=== PATIENT | female | born 1970 | race Caucasian/White ===

== ENCOUNTER 2019-10-03 09:00 | Day surgery (SDC) | payer OTHER, SELFPAY ==
[2019-10-03 09:05] VITALS: BP 119/83; PULSE 73; RESP 16; TEMP 36.3; O2SAT 99
--- NOTE | 2019-10-03 12:44 | NUR.NOTE ---
Pt left at 12:22 without having procedure performed. Pt was tired of waiting.Nursing Note:
== END 2019-10-03 09:20 ==
PROVIDERS: PCP Physician Assistant; Visit Provider Surgery
DX: R69 Illness, unspecified (principal)

== ENCOUNTER 2019-10-24 06:14 | Day surgery (SDC) | payer OTHER, SELFPAY ==
[2019-10-24 06:09] VITALS: BP 113/74; PULSE 60; RESP 16; TEMP 36.5; O2SAT 99
[2019-10-24] MEDS: Bupivacaine LIPOSOME/PF 133 MG/10 ML VIAL IJ (08:10)
--- NOTE | 2019-10-24 08:11 | SOFT_PTH ---
PATIENT: Ibis Lamas LOC: [facility] U#:[id number] AGE/SX: 49/F ROOM: RE10/24/[address]: Latha Foster : 1970 BED: DIS: 10/24/2019 SPEC #: [id number] RECD: 10/24/19 09:32 STATUS: REAGAN REQ #: [id number] STEPAN: 10/24/19 08:[address]: Latha Foster DEPT: Surgical Specimen RECD BY: Gayla Mcmillan ENTERED: 10/24/19 09:36 SP TYPE: SOFT OTHR DR: Liliana Roberts Tissues: 1 - SOFT TISSUE MISC (INC. LIPOMA) Procedures: GROSS AND MICRO LEVEL 3 Comments: [id number]
[2019-10-24] MEDS: Bacitracin 30 GM TUBE (08:13)
--- NOTE | 2019-10-24 08:20 | W.PM.OP ---
Date of service: 10/24/19 Time of Service: 08:20 Operative Note Operative Note DATE OF PROCEDURE: 09/23/19 PRE-OP DIAGNOSIS: lipoma POST-OP DIAGNOSIS: same excisio of lipoma PROCEDURE: excision of lipoma SURGEON: Latha Foster ANESTHESIA: local ESTIMATED BLOOD LOSS: 3 PATHOLOGY: other COMPLICATIONS: None Patient was transported to: same day Patient's condition: stable Procedure Description: Patient is here today for lipoma removal of the right shoulder. Information is obtained explaining risks and benefits including but not limited to: Bleeding, infection, complications from anesthesia, poor cosmesis, reaction to medications and recurrence. Patient was marked in the same day surgery. She is brought to the operative suite and placed in left lateral decubitus position. A timeout is completed. The area is prepped and draped in the usual sterile fashion using a ChloraPrep scrub solution. She did not receive preop antibiotics. It is anesthetized with 30 cc of cortisone Marcaine with epi. A 1 inch vertical incision was made over the midline of the mass. A combination of sharp dissection and electrocautery was used to remove the mass. There is approximately 3 x 2 inches. Electrocautery is used to provide hemostasis. Is attached down to the muscle of the fascia that is not invade the fascia. Deep tissues approximated with 4-0 Monocryl interrupted fashion. Skin is closed with interrupted sutures of 3-0 nylon. Is injected with 10 cc of Exparel. Bacitracin and sterile compression dressings are applied. Patient tolerated procedure well without complication. And will follow-up in 10 days for suture removal. It did not require a drain. It is sent for pathology.
--- NOTE | 2019-10-24 08:23 | PDOC.DSDIS_ITS ---
Discharge Plan Disposition Patient Disposition: HOME Condition: Good Discharge Details Reason For Visit: lipoma removal Attending Provider: Lahta Foster Primary Care Provider: Liliana Roberts Home Meds and New Rx's Prescriptions: New ibuprofen 600 mg tablet 600 mg PO Q6H PRN (Reason: pain (scale score 4-6)) Qty: 60 RF: 3 tramadol 50 mg tablet 50 mg PO Q6H PRN (Reason: pain (scale score 7-10)) Qty: 7 RF: 0 Continued cannabidiol 100 mg/mL solution 40 mg PO ONCE PRNRF: 0 lysine [L-Lysine] 500 mg tablet 500 mg PO DAILY RF: 0 Discharge Instructions Additional Instructions: Caring for Your Incision You?ll need to help care for your incision after surgery and certain medical procedures. To close an incision, your healthcare provider used stitches (sutures), special strips of surgical tape called Steri-Strips, surgical zulma, or surgical skin glue. Follow the tips on this sheet to help stop bleeding, speed healing, and prevent infection of your incision. Pain Control Use ice! Ice keeps the swelling down and swelling is what causes pain. Never apply ice directly to the skin. Wrap it in a towel or cloth. Apply ice 20 minutes on and 20 minutes off for pain control. Use as needed. Take tylenol 325 mg by mouth with food every 4 hours as needed for pain. Or ibuprofen 600 mg by mouth with food every 6 hours as needed for pain. Do not take tylenol if you have a history of heavy drinking , hepatits C or liver problems. Do not take ibuprofen if you have a history of stomach ulcers/problems, bleeding problem or kidney issues. Types of incision closures ? Surgical stitches (sutures) are placed by sewing the edges of an incision together with surgical thread. Sutures are either absorbable or non-absorbable. Absorbable sutures break down in the body over time. Non-absorbable sutures need to be removed. ? Home care ? Always wash your hands before touching your incision. ? Keep the incision clean, dry, and out of water, keep the incision out of water. ? Do not to pick at the scabs. Scabs help protect the wound. ? You can take a shower in 24 hours and wash the incision with soap and water. Pat dry/don?t scrub. It?s OK to wash around the incision. But don?t spray water directly on it. ? Pat stitches dry if they get wet. Don't rub. ? Check the incision site daily for pain, redness, drainage, swelling, or separation of the incision edges. ? If there is a bandage (dressing) over the incision, change this every 24 hours as instructed by your provider. Using clean hands change the dressing as directed by your healthcare provider. Always wash your hands before changing your dressing. ? Make sure any clothing that touches the incision is loose-fitting. This will prevent rubbing. If the incision is on the head, keep your child from wearing caps or other head coverings. These may rub against the incision. ? Try to avoid from rough play, contact sports, or physical activities for two weeks. This can put you at risk of opening the incision. ? Make sure you avoid doing things that could cause dirt or sweat to get in or on the incision. As your incision heals, the skin may appear pink or red. It may also feel slightly bumpy or raised. This is called a healing ridge. Over time, the color should fade and the raised skin will become less noticeable. Care for specific closures : ? Sutures or zulma. Once you no longer need to keep these dry, clean the incision or wound daily, generally after the first 24 hours. First remove the bandage using clean hands. Then wash the area gently with soap and warm water. Use a wet cotton swab to loosen and remove any blood or crust that forms. After cleaning, put a thin layer of antibiotic ointment on. Then put on a new bandage. Follow-up care [place] or sutures generally need to be removed in 7-10 days. Be sure to return for suture or staple removal as directed. If dissolving stitches were used in your mouth, these will not need to be removed. They should fall out or dissolve on their own. If tape closures were used, remove them yourself when your healthcare provider tells you to if they have not fallen off on their own. When to seek medical care Call your healthcare provider right away if you have any of these: ? More pain, redness, swelling, bleeding, or foul-smelling discharge around the incision area ? Fever of 101?F (38.3?C) or higher, or as directed by your child's healthcare provider ? Shaking chills ? Vomiting or nausea that doesn?t go away ? Numbness, coldness, or tingling around the incision area, or changes in skin color ? Opening of the sutures or wound Stitches or zulma come apart or fall out or surgical tape falls off before 7 days, or as directed by your healthcare provider [facility] Thursday to make appt w/ Dr. Foster in 10 days. [phone] Activity:: No lifting over 20 pounds with right arm x1. No strenuous activity x72 hours. Remove Dressings/Wound Care:: 24 hours Shower/Bathe:: 24 hours Diet:: As Tolerated Discharge Orders Discharge Orders: Discharge Order (Routine); Ordered 10/24/19 Ordered By: Latha Foster DS: Diagnosis Discharge Diagnosis (1) Lipoma of extremity: Status: Acute
== END 2019-10-24 08:44 | disposition home or self-care (01) ==
PROVIDERS: PCP Physician Assistant; Visit Provider Surgery
PROC: (CPT 23071; principal; 2019-10-24 07:30)
DX: D17.79 Benign lipomatous neoplasm of other sites (principal)
CPT/HCPCS: 23071; 88304

== ENCOUNTER 2020-01-29 11:50 | Emergency (ER) | payer OTHER, SELFPAY ==
[2020-01-29 11:56] VITALS: BP 128/83; PULSE 63; RESP 18; TEMP 36.6; O2SAT 100
--- NOTE | 2020-01-29 12:04 | W.ED.GENAD ---
Discharge Plan Disposition Patient Disposition: HOME Condition: Stable Discharge Details Clinical Impression: Hand pain, left Primary Care Provider: Liliana Roberts ED Provider: Shana Berumen Home Meds and New Rx's Prescriptions: Continued lysine [L-Lysine] 500 mg tablet 500 mg PO DAILY RF: 0 cannabidiol 100 mg/mL solution 40 mg PO .COMPLEX RF: 0 ibuprofen 600 mg tablet 600 mg PO Q6H PRN (Reason: pain (scale score 4-6)) Qty: 60 RF: 3 Discharge Instructions Instructions: Arthralgia (ED) Additional Instructions: Follow up with primary care provider in 3-5 days. Return to ED sooner if any worsening or concerns. Increase oral fluids. Please take Tylenol or Ibuprofen with food every 4-6 hours as needed for pain and swelling. Alternate ice and heat. Wear splint for comfort. Rest, ice, compression, elevation. Your x-rays are negative for any fracture at this time. You could be having pain from repetitive movements or tendinitis. Referrals: Liliana Roberts [Primary Care Provider] - Medical Decision Making 49-year-old female presents to the ED with chief complaint of sudden onset of left hand pain which began yesterday afternoon. She has no known recent injuries. She reports some tenderness to the snuffbox. She has been intact pulses, she notes that her fingers are somewhat swollen. Is able to make a fist. Moves her wrist without any difficulty. She states that her fingers will go numb at night. She has a past medical history of endometriosis, cellulitis, excision of ganglion cyst to the left hand, surgical history includes appendectomy, tonsillectomy and foot surgery. She has not taken any medications today prior to arrival. Imaging protocol: XR Left hand. Views: 3 or more views. COMPARISON: No relevant prior studies available. FINDINGS: Bones/joints: Normal. Soft tissues: Normal. IMPRESSION: No acute findings. No acute fractures or dislocations Thank you for allowing us to participate in the care of your patient. Dictated and Authenticated by: Josiah Bermudez MD We will place a universal wrist splint and instruct patient to follow up with PCP. HPI General Mode of arrival: ambulatory. Date/Time Provider Initiated Documentation: 01/29/20 11:50. Limitations to Documentation: no limitations. Information obtained by: patient. HPI Narrative: 49-year-old female presents to the ED with chief complaint of sudden onset of left hand pain which began yesterday afternoon. She has no known recent injuries. She reports some tenderness to the snuffbox. She has been intact pulses, she notes that her fingers are somewhat swollen. Is able to make a fist. Moves her wrist without any difficulty. She states that her fingers will go numb at night. She has a past medical history of endometriosis, cellulitis, excision of ganglion cyst to the left hand, surgical history includes appendectomy, tonsillectomy and foot surgery. She has not taken any medications today prior to arrival. Related Data Home Medications Medication Instructions Recorded Confirmed lysine 500 mg tablet 500 mg PO DAILY 09/02/19 01/29/20 ibuprofen 600 mg PO Q6H PRN #60 tab 10/24/19 01/29/20 cannabidiol 100 mg/mL oral solution 40 mg PO .COMPLEX ml 01/27/20 01/29/20 Previous Rx's Medication Instructions Recorded ibuprofen 600 mg PO Q6H PRN #60 tab 10/24/19 Allergies Allergy/AdvReac Type Severity Reaction Status Date / Time Sulfa (Sulfonamide Allergy Intermediate Hives Unverified 01/27/20 09:09 Antibiotics) General Stated Complaint: Orthopedic ASHLEY: 4 Review of Systems All systems reviewed & are unremarkable except as noted in HPI and below Musculoskeletal Musculoskeletal: Reports arthralgias (hand pain) 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 Social History Smoking/Tobacco Use Status: Former Tobacco Use Quit Date: 02/23/99 Smoking risk assessment performed?: Yes Alcohol Intake: current Alcohol Intake frequency: a few times a week Details: a couple of drinks 3 times a week Drug use: Never Substance use type: does not use 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 Do you feel safe at home: Yes Do you feel safe in your relationship?: Yes Exam Extrem General: full ROM and capillary refill normal Left upper extremity: full ROM, normal capillary refill, no joint enlargement and hand (Negative phalens test) Details: normal to inspection, neurosensory exam normal, tendon exam abnormal and normal ROM of fingers; no lacerations, no ecchymosis, no crepitus and no foreign bodies Course Vital Signs Vital signs: Vital Signs Temperature 36.6 C 01/29/20 11:56 Pulse 63 01/29/20 11:56 Respiratory Rate 18 01/29/20 11:56 Blood Pressure 128/83 01/29/20 11:56 Pulse Oximetry 100 01/29/20 11:56 Temperature 36.6 C 01/29/20 11:56 Temperature Source Skin 01/29/20 11:56 Pulse 63 01/29/20 11:56 Respiratory Rate 18 01/29/20 11:56 Respiratory Effort Non-Labored 01/29/20 12:00 Blood Pressure 128/83 01/29/20 11:56 Blood Pressure Position Sitting 01/29/20 11:56 Pulse Oximetry 100 01/29/20 11:56 Oxygen Delivery Method Room Air 01/29/20 11:56 Oxygen Flow Rate 0 01/29/20 11:56
--- NOTE | 2020-01-29 12:26 | DI.RAD_ITS ---
EXAM: XR HAND LT COMPLETE CLINICAL HISTORY: Left hand pain. TECHNIQUE: 2D digital imaging was performed. COMPARISON: No exams were available for comparison FINDINGS: Three views of the left hand reveal no fracture or dislocation. No radiopaque foreign body. No osse ous lesions. IMPRESSION: No fracture evident. DATA REPOSITORY: RADIATION DOSE DELIVERED:
--- NOTE | 2020-01-29 12:30 | DI.VRAD_ITS ---
PROCEDURE INFORMATION: Exam: XR Left Hand Exam date and time: 01/29/2020 12:24 PM Age: 49 years old Clinical indication: Hand; Patient HX: No trauma - pain base of left thumb TECHNIQUE: Imaging protocol: XR Left hand. Views: 3 or more views. COMPARISON: No relevant prior studies available. FINDINGS: Bones/joints: Normal. Soft tissues: Normal. IMPRESSION: No acute findings. No acute fractures or dislocations Dictated and Authenticated by: Josiah Bermudez MD. Ordering:ANA Saldana MD
== END 2020-01-29 12:50 | disposition home or self-care (01) ==
PROVIDERS: Emergency Provider Registered Nurse Emergency; PCP Physician Assistant
DX: M79.642 Pain in left hand (principal); R60.0 Localized edema; R20.0 Anesthesia of skin
CPT/HCPCS: 29125; 99283; 73130

== ENCOUNTER 2020-03-16 03:21 | Outpatient (CLI) | payer OTHER, SELFPAY ==
--- NOTE | 2020-03-16 06:30 | DI.MAMMO_ITS ---
EXAM: MG MAMMO SCREENING CLINICAL HISTORY: screening,Z12.39 TECHNIQUE: Bilateral full field digital CC and MLO mammographic images were obtained with 3D tomosyn thesis and utilizing computer aided detection (CAD). COMPARISON: Available for comparison. FINDINGS: Masses/Architectural Distortion: There has been interval increase in size of a nodule in the upper ou ter quadrant of the left breast. There is a question of a partially obscured nodule in the outer rosey tral right breast on the craniocaudad view. Microcalcifications: No suspicious pleomorphic-type are seen. Skin Thickening/Nipple Retraction: None. IMPRESSION: 1. Right and breast nodules as described above. 2. Additional views of both breasts are requested as well as ultrasound as indicated. BI-RADS Category 0 - Assessment Incomplete: Need additional imaging evaluation Breast Density - Category B - Scattered areas of fibroglandular density Breast density category C or D implies that the patient has dense breast tissue. Dense breast tissue is very common and is not abnormal but dense breast tissue can make it harder to find cancer on a ma mmogram. Also, dense breast tissue may increase their breast cancer risk. This information about the result of the mammogram report was provided to the patient to raise their awareness. Use this report when you speak with the patient about their risks for breast cancer, which includes their family hist ory. At that time, you may recommend for more screening tests (Ultrasound or MRI) as they might be us eful based on their risk. A negative radiographic report should not delay biopsy if a dominant or clinically suspicious mass is present. Up to ten percent of cancers are not identified on mammography. A negative report may reinforce clinical impression. Adenosis and dense breasts may obscure an underlying neoplasm. False positive reports average 6 to 10%. Patient will receive a letter notifying them of these results.
== END 2020-03-16 03:41 ==
PROVIDERS: PCP Physician Assistant; Visit Provider Obstetrics & Gynecology
DX: Z12.31 Encounter for screening mammogram for malignant neoplasm of breast (principal); N63.21 Unspecified lump in the left breast, upper outer quadrant
CPT/HCPCS: 77063; 77067

== ENCOUNTER 2020-03-23 02:54 | Outpatient (CLI) | payer OTHER, SELFPAY ==
--- NOTE | 2020-03-23 07:15 | DI.MAMMO_ITS ---
EXAM: MG MAMMO SCREEN CALL BACK BI CLINICAL HISTORY: F/U MAMMO, INCREASE IN LT BREAST NODULE,? PARTIALLY OBSCURED NODULE RT FELIPE. TECHNIQUE: Bilateral spot-compression views COMPARISON: Prior mammograms were reviewed, most recent 03/16/2020 FINDINGS: Left breast spot compression view reveals persistence of the recently described nodule. Please note breast ultrasound performed today reveals this to be a septated cyst. Please see that separate ultra sound report Right breast additional spot 3D view performed today renders the previously described possible nodule less evident. Indeed, today's right breast ultrasound was negative. Please see that separate ultra sound report. IMPRESSION: Left breast nodule persists on additional mammographic views and is shown to be septated cyst on ultr asound today. Right breast nodule is less evident on these additional mammographic view and indeed is negative on u ltrasound today. Please review separate bilateral breast ultrasound reports performed today. BI-RADS Category 3 - 6 month - Probably Benign Finding: Recommend follow-up ultrasound in 6 months Breast Density - Category C - Heterogeneously dense Breast density Category C or D implies that the patient has dense breast tissue. Dense breast tissue can make it harder to find cancer on a mammogram. Dense breast tissue is also associated with an incr eased risk of breast cancer. This information about the result of the mammogram report was provided to the patient to raise their awareness. Use this report when you speak with the patient about their risks for breast cancer, which includes their family history. At that time, you may recommend additional screening tests (Ultrasoun d or MRI) as these tests may add significant information. A negative radiographic report should not delay biopsy if a dominant or clinically suspicious mass is present. Up to ten percent of cancers are not identified on mammography. A negative report may reinforce clinical impression. Adenosis and dense breasts may obscure an underlying neoplasm. False positive reports average 6 to 10%. Patient will receive a letter notifying them of these results.
--- NOTE | 2020-03-23 07:25 | DI.US_ITS ---
EXAM: US BREAST LT LIMITED CLINICAL HISTORY: F/U MAMMO, INCREASE IN SIZE OF LT BREAST NODULE. TECHNIQUE: Limited ultrasound of the left breast was performed. COMPARISON: Prior mammograms were reviewed. . Most recent being 03/16/2020 as well as today's diagn ostic images FINDINGS: At the peripheral 1 o'clock position there is a 12 x 4 millimeter cyst which corresponds to the findi ng at this location on the mammogram. Also noted is a 5 x 3 millimeter microcyst at the 6 o'clock position. No solid lesions seen in the left breast. IMPRESSION: Benign-appearing left breast ultrasound findings as described above. Appropriate follow-up is repeat imaging in 6 months to ensure stability. BI-RADS Category 3 - 6 month - Probably Benign Finding: Recommend follow-up mammography in 6 months Breast Density - Category C - Heterogeneously dense Breast density Category C or D implies that the patient has dense breast tissue. Dense breast tissue can make it harder to find cancer on a mammogram. Dense breast tissue is also associated with an incr eased risk of breast cancer. This information about the result of the mammogram report was provided to the patient to raise their awareness. Use this report when you speak with the patient about their risks for breast cancer, which includes their family history. At that time, you may recommend additional screening tests (Ultrasoun d or MRI) as these tests may add significant information. A negative radiographic report should not delay biopsy if a dominant or clinically suspicious mass is present. Up to ten percent of cancers are not identified on mammography. A negative report may reinforce clinical impression. Adenosis and dense breasts may obscure an underlying neoplasm. False positive reports average 6 to 10%. Patient will receive a letter notifying them of these results.
--- NOTE | 2020-03-23 07:25 | DI.US_ITS ---
EXAM: US BREAST RT LIMITED CLINICAL HISTORY: F/U MAMMO, ? PARTIALLY OBSCURED NOULE OUTER CENTRAL RT BREAST. TECHNIQUE: Limited ultrasound of the right breast was performed. COMPARISON: Prior mammograms were reviewed. Most recent mammogram 03/16/2020 as well as additional m ammographic spot views performed today. FINDINGS: There is no evidence of solid or significant cystic lesions in all 4 quadrants of the right breast. This implies that the asymmetric density described recently on the screening mammogram is most probab ly asymmetric tissue as opposed to a true nodule. Indeed, it was also less concerning on the additional mammographic view performed today. Also no significant findings in the retroareolar region. No adenopathy in the ipsilateral-right axil la. IMPRESSION: Negative right breast ultrasound. Appropriate follow-up is repeat right breast mammogram in 6 months. BI-RADS Category 3 - 6 month - Probably Benign Finding: Recommend follow-up mammography in 6 months Breast Density - Category C - Heterogeneously dense Breast density Category C or D implies that the patient has dense breast tissue. Dense breast tissue can make it harder to find cancer on a mammogram. Dense breast tissue is also associated with an incr eased risk of breast cancer. This information about the result of the mammogram report was provided to the patient to raise their awareness. Use this report when you speak with the patient about their risks for breast cancer, which includes their family history. At that time, you may recommend additional screening tests (Ultrasoun d or MRI) as these tests may add significant information. A negative radiographic report should not delay biopsy if a dominant or clinically suspicious mass is present. Up to ten percent of cancers are not identified on mammography. A negative report may reinforce clinical impression. Adenosis and dense breasts may obscure an underlying neoplasm. False positive reports average 6 to 10%. Patient will receive a letter notifying them of these results.
== END 2020-03-23 03:14 ==
PROVIDERS: PCP Physician Assistant; Visit Provider Obstetrics & Gynecology
DX: N60.02 Solitary cyst of left breast (principal); R92.8 Other abnormal and inconclusive findings on diagnostic imaging of breast; R92.2 Inconclusive mammogram; Z12.31 Encounter for screening mammogram for malignant neoplasm of breast
CPT/HCPCS: 76642; 77063; 77067

== ENCOUNTER 2020-04-09 14:18 | Emergency (ER) | payer OTHER, SELFPAY ==
[2020-04-09 14:24] VITALS: BP 117/73; PULSE 70; RESP 16; TEMP 36.2; O2SAT 100
--- NOTE | 2020-04-09 14:30 | DI.RAD_ITS ---
EXAM: XR FOREARM RT CLINICAL HISTORY: pain and swelling prox third post fall. TECHNIQUE: 2D digital imaging was performed. COMPARISON: No exams were available for comparison FINDINGS: Limited two view study reveals no obvious fractures. No radiopaque foreign body. No osseous lesions in the form bones. If there is a significant consideration for possible elbow fracture then dedicated elbow views would be recommended. IMPRESSION: DATA REPOSITORY: RADIATION DOSE DELIVERED:
--- NOTE | 2020-04-09 14:40 | W.ED.GENAD ---
Discharge Plan Disposition Patient Disposition: HOME Condition: Good Discharge Details Clinical Impression: Contusion Primary Care Provider: Liliana Roberts ED Provider: Lauren Serrano Home Meds and New Rx's Prescriptions: No Action cannabidiol 100 mg/mL solution 40 mg PO .COMPLEX RF: 0 ibuprofen 600 mg tablet 600 mg PO Q6H PRN (Reason: pain (scale score 4-6)) Qty: 60 RF: 3 Discharge Instructions Instructions: Contusion in Adults (ED) Additional Instructions: Compression, ice, elevation Return for worsening pain, strength or sensation changes, or with any new or worsening complaints Ibuprofen and Tylenol as needed for discomfort Medical Decision Making Compression Eros wrap Patient without acute fracture on x-ray, interpreted by me, pending radiology review Ibuprofen and Tylenol as needed for pain Repeat x-ray in 1 week with persistent pain Return precautions discussed and pt expressed understanding Differential Diagnosis Differential Diagnosis: Fracture, strain, hematoma, contusion Medical Records Medical records reviewed: Yes I reviewed the patient's medical records. HPI 49-year-old female presents with slip and fall. She landed on her right forearm. This just prior to arrival she is she denies any history of head injury or neck pain. She denies any chest pain, shortness of breath, history of coagulopathy. She denies any strength or sensation changes. She describes the pain as aching. Denies chance of . General Date/Time Provider Initiated Documentation: 04/09/20 14:25. Related Data Home Medications Medication Instructions Recorded Confirmed ibuprofen 600 mg PO Q6H PRN #60 tab 10/24/19 04/09/20 cannabidiol 100 mg/mL oral solution 40 mg PO .COMPLEX ml 01/27/20 04/09/20 Previous Rx's Medication Instructions Recorded ibuprofen 600 mg PO Q6H PRN #60 tab 10/24/19 Allergies Allergy/AdvReac Type Severity Reaction Status Date / Time Sulfa (Sulfonamide Allergy Intermediate Hives Unverified 04/09/20 14:33 Antibiotics) General Stated Complaint: Orthopedic ASHLEY: 3 Review of Systems Narrative: Review of systems negative x5 aside from where indicated in HPI, specifically no history of coagulopathy, head injury, nausea, vomiting, neck pain [facility] Medical History (Updated 04/09/20 @ 15:02 by DAREK Hanson) Abnormal mammogram of both breasts Breast cancer screening Endometriosis History of cellulitis right face from ear infection Surgical History (Updated 02/07/20 @ 14:59 by Maye Zeng RN) H/O excision of ganglion cyst left wrist Hx of appendectomy Hx of laparoscopy for endometriosis Hx of tonsillectomy S/P foot surgery, left S/P foot surgery, 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 Status post excision of lipoma (~10/24/19) right shoulder in OR Social History Smoking/Tobacco Use Status: Former Tobacco Use tobacco type: cigarettes Quit Date: 02/23/99 Smoking risk assessment performed?: Yes Alcohol Intake: current Alcohol Intake frequency: a few times a week Details: a couple of drinks 3 times a week Drug use: Never Substance use type: does not use 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 Swelling and tenderness, no tenderness to right wrist or right elbow, no tenderness to right shoulder, neurovascularly intact, sensation intact Course Vital Signs Vital signs: Vital Signs Temperature 36.2 C L 04/09/20 14:24 Pulse 70 04/09/20 14:24 Respiratory Rate 16 04/09/20 14:24 Blood Pressure 117/73 04/09/20 14:24 Pulse Oximetry 100 04/09/20 14:24 Temperature 36.2 C L 04/09/20 14:24 Temperature Source Skin 04/09/20 14:24 Pulse 70 04/09/20 14:24 Respiratory Rate 16 04/09/20 14:24 Respiratory Effort 04/09/20 14:34 Blood Pressure 117/73 04/09/20 14:24 Blood Pressure Position Sitting 04/09/20 14:24 Pulse Oximetry 100 04/09/20 14:24 Oxygen Delivery Method Room Air 04/09/20 14:24 Oxygen Flow Rate 0 04/09/20 14:24 Pain Level 6 04/09/20 14:24 Comment 04/09/20 14:24
== END 2020-04-09 15:19 | disposition home or self-care (01) ==
PROVIDERS: Emergency Provider Physician Assistant; PCP Physician Assistant
DX: S50.11XA Contusion of right forearm, initial encounter (principal); W00.1XXA Fall from stairs and steps due to ice and snow, initial encounter
CPT/HCPCS: 99283; 73090

== ENCOUNTER 2020-07-17 15:38 | Emergency (ER) | payer OTHER, SELFPAY ==
[2020-07-17 15:45] VITALS: BP 113/78; PULSE 54; RESP 14; TEMP 36.2; O2SAT 100
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
== END 2020-07-17 17:46 | disposition home or self-care (01) ==
PROVIDERS: Emergency Provider Physician Assistant; PCP Physician Assistant
DX: S40.212A Abrasion of left shoulder, initial encounter (principal); V19.9XXA Pedal cyclist (driver) (passenger) injured in unspecified traffic accident, initial encounter
CPT/HCPCS: 90471; 99284; 73030; 73060; 99283

== ENCOUNTER 2020-09-21 03:40 | Outpatient (CLI) | payer OTHER, SELFPAY ==
--- NOTE | 2020-09-21 07:15 | DI.US_ITS ---
Exam(s) US BREAST LT COMPLETE MG MAMMO DIAGNOSTIC UNI EXAM: MG MAMMO DIAGNOSTIC UNI right and U/S breast LT complete CLINICAL HISTORY: F/U ABNL MAMMO, 6 MO F/U,. TECHNIQUE: Craniocaudal and mediolateral oblique Full Field Digital Mammography views of the right b reast with Computer Aided Diagnosis followed by Tomosynthesis and left breast ultrasound. COMPARISON: Priors available for comparison. FINDINGS: Right mammography/Tomosynthesis: Masses/Architectural Distortion: None seen. Microcalcifictions: No suspicious pleomorphic-type are seen. Skin Thickening/Nipple Retraction: None. Left breast US: Echotexture: Normal appearance of the glandular tissue. Shadowing: No suspicious foci. Cyst: The septated cyst at the 1 o'clock position of the left breast is unchanged. There has been in terval decrease in size in the simple cyst at the 6 o'clock position of the left breast 6 cm from the nipple. It currently measures 3 mm in diameter. Solid lesions: None seen. Ductal dilation: None. IMPRESSION: 1. No evidence of malignancy is noted. 2. Unless there is more urgent need, follow-up screening mammography is recommended, as per [employer] [employer] guidelines. 3. The findings were discussed with the patient on the date of the examination. BI-RADS Category 2 - Benign Findings Breast Density - Category C - Heterogeneously dense Breast density Category C or D implies that the patient has dense breast tissue. Dense breast tissue can make it harder to find cancer on a mammogram. Dense breast tissue is also associated with an incr eased risk of breast cancer. This information about the result of the mammogram report was provided to the patient to raise their awareness. Use this report when you speak with the patient about their risks for breast cancer, which includes their family history. At that time, you may recommend additional screening tests (Ultrasoun d or MRI) as these tests may add significant information. A negative radiographic report should not delay biopsy if a dominant or clinically suspicious mass is present. Up to ten percent of cancers are not identified on mammography. A negative report may reinforce clinical impression. Adenosis and dense breasts may obscure an underlying neoplasm. False positive reports average 6 to 10%. Patient will receive a letter notifying them of these results.
== END 2020-09-21 04:00 ==
PROVIDERS: PCP Physician Assistant; Visit Provider Obstetrics & Gynecology
DX: R92.8 Other abnormal and inconclusive findings on diagnostic imaging of breast (principal); R92.2 Inconclusive mammogram
CPT/HCPCS: 76642; 77061; 77065; G0279

== ENCOUNTER → 2021-11-15 00:19 | Outpatient (CLI) | payer OTHER, SELFPAY ==
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
== END ==
PROVIDERS: PCP Physician Assistant; Visit Provider Student in an Organized Health Care Education/Training Program
DX: M65.812 Other synovitis and tenosynovitis, left shoulder (principal)
CPT/HCPCS: 73221

== ENCOUNTER → 2022-01-03 12:17 | Outpatient (CLI) | payer OTHER, SELFPAY ==
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
== END ==
PROVIDERS: PCP Physician Assistant; Visit Provider Podiatrist
DX: M19.071 Primary osteoarthritis, right ankle and foot (principal)
CPT/HCPCS: 73630

== ENCOUNTER 2022-04-18 02:04 | Outpatient (CLI) | payer OTHER, SELFPAY ==
[2022-04-18 13:46] LABS: ALT 23 U/L (14-59); AST 16 U/L (15-37); Albumin 4.1 g/dL (3.4-5.0); Alkaline Phosphatase 102 U/L (46-116); Anion Gap 8.2 mmol/L (3-11); BUN 16 mg/dL (7-18); CO2 28.8 mmol/L (21.0-32.0); Calcium 9.3 mg/dL (8.5-10.1); Chloride 104 mmol/L (98-107); Cholesterol 173 mg/dL (<200); Estimated GFR 69.06 (mL/min/1.73m2); Glucose 95 mg/dL (74-106); HDL Cholesterol 75 mg/dL (40-60); Sodium 141 mmol/L (136-145); Triglyceride < 25 mg/dL (<150)
[2022-04-18 13:56] LABS: LDL CHOLESTEROL 90 mg/dL (<100)
== END 2022-04-18 02:05 | disposition home or self-care (01) ==
PROVIDERS: PCP Physician Assistant; Visit Provider Nurse Practitioner Family
DX: E66.3 Overweight (principal)
CPT/HCPCS: 36415; 80053; 80061; 83721

== ENCOUNTER 2022-09-12 10:06 | Outpatient (CLI) | payer OTHER, SELFPAY ==
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
== END 2022-09-12 10:07 | disposition home or self-care (01) ==
LOC: DIORS 10:07
PROVIDERS: PCP Physician Assistant; Referring Provider Physician Assistant; Visit Provider Physician Assistant
DX: M25.561 Pain in right knee (principal); M22.8X1 Other disorders of patella, right knee
CPT/HCPCS: 73564

== ENCOUNTER 2022-10-24 09:52 | Outpatient (REF) | payer OTHER, SELFPAY ==
--- NOTE | 2022-10-24 09:20 | PAPFT_PTH ---
PATIENT: Ibis Lamas LOC: [facility]#:[id number] AGE/SX: 52/F ROOM: RE10/24/[address]: Andreia Hartman DO : 1970 BED: DIS: 10/24/2022 SPEC #: [id number] RECD: 10/24/22 13:22 STATUS: REAGAN REAra #: [id number] STEPAN: 10/24/22 09:[address]: Andreia Hartman DEPT: [facility] Cytology RECD BY: Lauren Steward ENTERED: 10/24/22 13:22 SP TYPE: PAPFT OTHR DR: Liliana Roberts Tissues: 1 - CX/ENDOCX FOR PAP SMEARS Procedures: PAP THIN PREP/UVM Screening HPV DNA PROBE Comments: [id number]
== END 2022-10-24 09:53 | disposition home or self-care (01) ==
LOC: LBN 09:52
PROVIDERS: PCP Physician Assistant; Visit Provider Obstetrics & Gynecology
DX: Z12.4 Encounter for screening for malignant neoplasm of cervix (principal); Z11.51 Encounter for screening for human papillomavirus (HPV)
CPT/HCPCS: 88142; 87624

== ENCOUNTER → 2022-11-17 01:29 | Outpatient (CLI) | payer OTHER, SELFPAY ==
--- NOTE | 2022-11-17 07:46 | DI.MAMMO_ITS ---
Exam(s) MAMMO SCREENING EXAM: MAMMO SCREENING CLINICAL HISTORY: screening. TECHNIQUE: Bilateral full field digital CC and MLO mammographic images were obtained with 3D tomosyn thesis and utilizing computer aided detection (CAD). COMPARISON: Prior mammograms were reviewed. FINDINGS: No new findings in the right breast. In the left breast 2 adjacent benign-appearing small nodular densities in the upper outer quadrant ar e again noted, unchanged. However, inferiorly at the 6 o'clock position there is a new nodular densi ty measuring 5 x 4 mm located 9 cm in from the nipple. Spot compression view and ultrasound recommen ded. No malignant-appearing microcalcification groups. There is no significant architectural distortion nor skin thickening-retraction. IMPRESSION: 1. No radiographic evidence of malignancy in right breast. 2. New nodular density inferiorly at approximately 6 o'clock position left breast. Spot compression view and ultrasound recommended. BI-RADS Category 0 - Assessment Incomplete: Need additional imaging evaluation Breast Density - Category B - Scattered areas of fibroglandular density Breast density Category C or D implies that the patient has dense breast tissue. Dense breast tissue can make it harder to find cancer on a mammogram. Dense breast tissue is also associated with an incr eased risk of breast cancer. This information about the result of the mammogram report was provided to the patient to raise their awareness. Use this report when you speak with the patient about their risks for breast cancer, which includes their family history. At that time, you may recommend additional screening tests (Ultrasoun d or MRI) as these tests may add significant information. A negative radiographic report should not delay biopsy if a dominant or clinically suspicious mass is present. Up to ten percent of cancers are not identified on mammography. A negative report may reinforce clinical impression. Adenosis and dense breasts may obscure an underlying neoplasm. False positive reports average 6 to 10%. Patient will receive a letter notifying them of these results.
== END ==
PROVIDERS: PCP Physician Assistant; Visit Provider Obstetrics & Gynecology
DX: Z12.31 Encounter for screening mammogram for malignant neoplasm of breast (principal)
CPT/HCPCS: 77063; 77067

== ENCOUNTER → 2022-11-28 00:20 | Outpatient (CLI) | payer OTHER, SELFPAY ==
--- NOTE | 2022-11-28 | DI.US_ITS ---
Exam(s) MG MAMMO SCREEN CALL BACK UNI US BREAST LT LIMITED EXAM: MG MAMMO SCREEN CALL BACK UNI CLINICAL HISTORY: F/U ABNL MAMMO, NEW NODULAR DENSITY LT BREAST. TECHNIQUE: Craniocaudal and mediolateral oblique spot compression digital Mammography views of the r ightbreast with Tomosynthesis and right breast ultrasound. COMPARISON: MG MAMMO BILAT SCREEN W LISETH from 01/15/2015 MG MAMMO BILAT SCREEN W LISETH from 02/15/2016 MG MAMMO BILAT SCREEN W LISETH from 03/16/2017 MG MAMMO BILAT SCREENING W LISETH from 03/23/2018 MG MAMMO BILAT SCREENING W LISETH from 03/31/2019 MG MG MAMMO SCREENING from 03/16/2020 US US BREAST LT LIMITED from 03/23/2020 US US BREAST RT LIMITED from 03/23/2020 MG MG MAMMO DIAGNOSTIC UNI from 09/21/2020 US US BREAST LT COMPLETE from 09/21/2020 MG MG MAMMO SCREENING from 11/17/2022 US US BREAST LT LIMITED from 11/28/2022 FINDINGS: Mammography/Tomosynthesis: Masses/Architectural Distortion: Persistent circumscribed nodules are again noted in the posterior up per outer quadrant of the right breast. Tiny nodule in the central breast. Microcalcifictions: No suspicious pleomorphic-type are seen. Skin Thickening/Nipple Retraction: None. Right breast US: Echotexture: Normal appearance of the glandular tissue. Shadowing: No suspicious foci. Cyst: 2 adjacent cysts some measuring 5 and 6 millimeters, in the 1 o'clock position 9 cm from the ni pple. 3 millimeter cyst 6 o'clock position 6 cm from the nipple. Solid lesions: None seen. Ductal dilation: None. IMPRESSION: 1. No evidence of malignancy is noted. 2. Unless there is more urgent need, follow-up screening mammography is recommended, as per [place] [employer] guidelines. 3. The findings were discussed with the patient on the date of the examination. BI-RADS Category 2 - Benign Findings Breast Density - Category B - Scattered areas of fibroglandular density A negative radiographic report should not delay biopsy if a dominant or clinically suspicious mass is present. Up to ten percent of cancers are not identified on mammography. A negative report may reinforce clinical impression. Adenosis and dense breasts may obscure an underlying neoplasm. False positive reports average 6 to 10%. Patient will receive a letter notifying them of these results.
== END ==
PROVIDERS: PCP Physician Assistant; Visit Provider Obstetrics & Gynecology
DX: Z12.31 Encounter for screening mammogram for malignant neoplasm of breast (principal); N63.12 Unspecified lump in the right breast, upper inner quadrant
CPT/HCPCS: 76642; 77063; 77067

== ENCOUNTER 2023-08-11 18:11 | Outpatient (REF) | payer OTHER, SELFPAY ==
[2023-08-11 21:04] LABS: Bilirubin Negative (Negative); Blood Negative (Negative); Clarity Clear (Clear); Glucose Negative (Negative); Ketones 40 mg/dL (Negative); Leukocyte Esterase Negative (Negative); Nitrite Negative (Negative); Urobilinogen 0.2 mg/dL (Up to 0.2); pH 7.5 (5-8)
== END 2023-08-11 18:12 | disposition home or self-care (01) ==
LOC: LBN 18:11
PROVIDERS: PCP Nurse Practitioner Adult Health; Visit Provider Nurse Practitioner Family
DX: R39.89 Other symptoms and signs involving the genitourinary system (principal); R82.998 Other abnormal findings in urine
CPT/HCPCS: 81003

== ENCOUNTER 2024-02-17 12:37 | Emergency (ER) | payer OTHER, SELFPAY ==
[2024-02-17 12:40] VITALS: BP 136/99; PULSE 74; RESP 18; TEMP 36.6; O2SAT 100
--- NOTE | 2024-02-17 12:55 | W.ED.GENAD ---
Discharge Plan Disposition Patient Disposition: Home Condition: Stable Discharge Details Clinical Impression: Concussion syndrome Primary Care Provider: Nuria Malagon ED Provider: Jose Lloyd Home Meds and New Rx's Prescriptions: Continued Deeper Dreams CBN & CBD Gummies PO QHS PRN (Reason: insomnia) ibuprofen 600 mg tablet 600 mg PO Q6H PRN (Reason: pain (scale score 4-6)) Qty: 60 3RF Rx Instructions: take w/ food Discharge Instructions Instructions: Meclizine, Post-Concussion Syndrome ED Additional Instructions: You were seen in the emergency department for your postconcussion syndrome with some intermittent nausea and dizziness, this is common after concussion and it can take weeks to recover from this, you have no evidence of intracranial bleeding or neurologic abnormality on exam and do not meet [place] head CT criteria. You are well outside the window where brain bleed would be suspected, if you had had some brain bleeding it would have pronounced itself with severe neurologic changes. Please use therapeutic dosing of Tylenol (acetamenophen) & Advil (ibuprofen) in an alternating fashion as follows: Take 1000mg of Tylenol every 6 hours without missing doses- that is 4 times per day. Care Home in between the Tylenol dosings, take 400-600mg of Advil also on a 6 hour schedule, that is also 4 times per day. The daily maximum dosing of Tylenol is 4000mg, and the daily maximum dosing of Advil is 2400mg. This is safe to do for weeks. Please note that some common cold medications & prescription pain medications may contain acetamenophen and you need to read OTC drug labels and factor that in to maximum daily dosings. Take the provided meclizine for any dizziness as needed, this may help with your upcoming travel plans, please return to emergency department for any severe neurological changes, intractable nausea or vomiting, visual changes, loss of consciousness, new onset of severe vertigo. Referrals: Nuria Malagon, [facility] [employer] [facility] [Primary Care Provider] - Discharge Data Discharge Date/Time-TO BE ENTERED AT DEPARTURE: 02/17/24 13:28 HPI General Date/Time Provider Initiated Documentation: 02/17/24 12:55. HPI Narrative: 53 year-old female presents to ED today by POV/ambulating with a chief complaint of head injury, hip injury with onset 3 weeks ago, still having some intermittent dizziness/nausea while driving etc. 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 She denies loss of consciousness but states her memory was a little foggy afterwards. Quality described as generalized headache with nausea/dizziness intermittently, resolving hip and R neck bruise, no radiation to numbness/tingling, vertigo, visual changes, repetitive questioning. Severity is described as mild to moderate. Palliating factors include taking Tylenol and ibuprofen with some relief. Provoking factors include nothing specific. Events leading up to the incident/Associated Symptoms: Patients daughter is a nurse and wanted her to get checked if she needs to get a CT prior to upcoming holiday travel. Patient not anticoagulated. Related Data Home Medications ?Medication ?Instructions ?Recorded ?Confirmed ibuprofen 600 mg tablet 600 mg PO Q6H PRN pain (scale 10/24/19 02/17/24 score 4-6) #60 tabs Deeper Dreams CBN & CBD Gummies PO QHS PRN insomnia 05/22/23 08/11/23 Previous Rx's ?Medication ?Instructions ?Recorded ibuprofen 600 mg tablet 600 mg PO Q6H PRN pain (scale 10/24/19 score 4-6) #60 tabs Allergies Allergy/AdvReac Type Severity Reaction Status Date / Time Sulfa (Sulfonamide Allergy Intermediate Hives Unverified 02/17/24 12:45 Antibiotics) Oxycodone Allergy Unknown Other (See Uncoded 02/17/24 12:45 Comment) General Stated Complaint: Orthopedic ASHLEY: 4 Review of Systems All systems reviewed & are unremarkable except as noted in HPI and below Exam Narrative Exam Narrative: GENERAL APPEARANCE: Well-nourished, non-toxic, awake and alert, atraumatic, no acute distress. SKIN: Warm, pink, dry, intact, without rashes/lesions/ulcerations. HEAD: Normocephalic, atraumatic, normal hair distribution for gender/age. EYES: Normal conjunctiva, no exudates on lids/lashes. ENT: Nares patent, no circumoral cyanosis, no facial swelling NECK: Supple, trachea midline, painless cervical ROM. LUNGS/CHEST: Non-labored respirations, normal A/P diameter, symmetrical expansion, no chest wall deformity HEART (CV/PV): No peripheral edema, no JVD. ABDOMEN: Soft, non-distended, no guarding. MSK: Normal ROM, no swelling/deformity to bilateral UEs or LEs, moving all extremities without weakness, no cyanosis, spine midline without tenderness, normal curvature,resolving contusions to right neck, right hip not overtly tender, weightbearing as normal, no George sign, no periorbital ecchymosis or scalp hematoma, neuro intact without dysmetria or other coordination deficits, no hemotympanums bilaterally NEURO: Mental Status AAOx4 - alert to person, place, time, events No facial droop, no forehead involvement, no dysmetria with cerebellar testing Motor: No focal weakness - strength 5/5 in bilateral UEs and LEs, proximal and distal, symmetric. Sensory: sensation intact to light touch globally. Gait normal: patient ambulated without ataxia into ED room. PSYCH: euthymic, cooperative, pleasant, appropriate speech Course Vital Signs Vital signs: Vital Signs Temperature 36.6 C 02/17/24 12:40 Pulse 74 02/17/24 12:40 Respiratory Rate 18 02/17/24 12:40 Blood Pressure 136/99 H 02/17/24 12:40 Pulse Oximetry 100 02/17/24 12:40 Temperature 36.6 C 02/17/24 12:40 Temperature Source Oral 02/17/24 12:40 Pulse 74 02/17/24 12:40 Respiratory Rate 18 02/17/24 12:40 Blood Pressure 136/99 H 02/17/24 12:40 Blood Pressure Position Sitting 02/17/24 12:40 Pulse Oximetry 100 02/17/24 12:40 Oxygen Delivery Method Room Air 02/17/24 12:40 Oxygen Flow Rate 0 02/17/24 12:40 Pain Level 0 02/17/24 12:40 Medical Decision Making This dictation utilizes [id number] dictation software and may contain unedited grammatical errors. 53 year-old female presents to ED today by POV/ambulating with a chief complaint of head injury, hip injury with onset 3 weeks ago, still having some intermittent dizziness/nausea while driving etc. 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 She denies loss of consciousness but states her memory was a little foggy afterwards. Quality described as generalized headache with nausea/dizziness intermittently, resolving hip and R neck bruise, no radiation to numbness/tingling, vertigo, visual changes, repetitive questioning. Severity is described as mild to moderate. Palliating factors include taking Tylenol and ibuprofen with some relief. Provoking factors include nothing specific. Events leading up to the incident/Associated Symptoms: Patients daughter is a nurse and wanted her to get checked if she needs to get a CT prior to upcoming holiday travel. Patients' medical history: Noncontributory. Family and social history: Noncontributory. Pertinent exam findings / vital signs include resolving contusions to right neck, right hip not overtly tender, weightbearing as normal, no George sign, no periorbital ecchymosis or scalp hematoma, neuro intact without dysmetria or other coordination deficits, no hemotympanums bilaterally. Differential / pathologies of concern include concussion syndrome, not ICH, unlikely fracture. Diagnostic studies of: -None, does not meet [place] head CT criteria. Interventions of: -Provided meclizine to go. ED Course/Assessment/Plan: Counseled the patient on likely concussion syndrome, very low likelihood of any ICH, no risk for travel, recommend a trial of meclizine and take regular dose of Tylenol and ibuprofen, strict return criteria for any neurologic. Findings not consistent with intracranial hemorrhage, fracture. Disposition of concussion syndrome. Patient verbalized understanding of the plan and return to ED criteria and engaged in shared decision making. Medical Records Medical records reviewed: Yes I reviewed the patient's medical records. Quality:SDOH Health Related Social Needs: No Data to Display PFSH All Active Problems (Updated 02/17/24 @ 12:58 by DAREK Cary) Concussion syndrome (Acute) Insomnia (Chronic) History of nicotine use (Chronic) Quit 1999 Abnormality of left breast on screening mammogram (Acute) 11/15. Spot compression and ultrasound ordered. Benign. Repeat imaging with yearly screening mammography 10/2022. Right patellofemoral syndrome (Acute ~08/2022) Chondromalacia of right patella (Acute ~08/2022) Medical History Depressed R/T insomnia Tubular adenoma of colon (~2010) 2010--small TA 2017--normal colonoscopy Tendinitis of long head of biceps brachii of left shoulder (~2021) SLAP lesion of left shoulder (~06/2020) Sprain of left acromioclavicular joint (~06/2020) Acute shoulder pain Contusion Abnormal mammogram of both breasts (~2020) Follow up B/L mammo scheduled 08/2020 Lipoma of extremity Fracture, finger, multiple sites Lipoma of right shoulder Iatrogenic shortened metatarsal bone of right foot (~2015) 2016 Iatrogenic shortened metatarsal bone of left foot (~2013) 2014 Shortening of first metatarsal/ sesamoid removal Torticollis (~2006) 2006 Broken toe right pinky toe 2004 right big toe 2017 [place] (~2000) [place] [facility] [place]. 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 Family History Father Alcohol use disorder Diabetes Heart disease Hypertension Paternal Grandmother Breast cancer Maternal Grandmother Liver cancer Paternal Grandfather Heart disease Maternal Grandfather Liver cancer Social History Smoking/Tobacco Use Status: Former Tobacco Use tobacco type: cigarettes Quit Date: 02/23/99 Second Hand Exposure: No Smoking risk assessment performed?: Yes Alcohol Intake: current Alcohol Intake frequency: a few times a week Alcohol type: beer Details: a couple of drinks 3 times a week Drug use: Rarely Substance use type: does not use and marijuana Adopted: No Caregiver/Support person: No Foster care: No Household members: none Housing: apartment Number of Children: 2 number of grandchildren: 0 Communication Needs: None Education Level: vocational Do you need help understanding health information?: Rarely 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 Pets and animals: No Sexually active: Yes Do you think of yourself as: straight/heterosexual Current gender identity: female What is your relationship status?: How often do you talk on the phone with friends or family?: three or more times per week How often do you get together with friends or relatives?: three or more times per week How often do you attend adventism or gnosticism services?: decline to answer Do you belong to any clubs or organized social groups?: no Panel score (0-1 are the most socially isolated patients): 1 What type of physical activity do you participate in: bicycling and additional Details: ski Duration: 45-60 minutes/day Frequency: 3-4 times per week Meli/Sikhism: Evangelical Special meli needs: No Seatbelt use: always Helmet use: Yes Helmet use: always Drive intox or ride w/intox [employer] 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
[2024-02-17] MEDS: Meclizine 25 MG TAB 100 MG PO (13:24)
[2024-02-17 13:26] VITALS: BP 136/80; PULSE 82; RESP 17; TEMP 36.4; O2SAT 97
== END 2024-02-17 13:28 | disposition home or self-care (01) ==
LOC: ER 13:29
PROVIDERS: Emergency Provider Physician Assistant; PCP Nurse Practitioner Adult Health
DX: R11.0 Nausea (principal); F07.81 Postconcussional syndrome; W19.XXXA Unspecified fall, initial encounter; R42 Dizziness and giddiness; R51.9 Headache, unspecified

== ENCOUNTER 2024-08-29 02:58 | Outpatient (CLI) | payer OTHER, SELFPAY ==
--- NOTE | 2024-08-29 07:15 | DI.MRI_ITS ---
Exam(s) MR PELVIS WO EXAM: MR PELVIS WO CLINICAL HISTORY: MSK pelvic with thin cuts,chrc pain deep lt butt radiating into groin/leg, TECHNIQUE: Multiplanar multisequence MRI of Pelvis was performed COMPARISON: No exams were available for comparison FINDINGS: OSSEOUS ARTICULATIONS: No evidence of pelvic nor hip fractures. No evidence of avascular necrosis. Small amount of increased left hip joint fluid. No evidence of paralabral cysts. Sacroiliac joints and symphysis pubis appear un remarkable. Incidentally noted are Tarlov intra sacral cysts within the sacral canal. There is no abnormal intraosseous signal abnormality at the level the ischial tuberosities. MUSCULOTENDINOUS STRUCTURES: No significant findings in the musculature over the anterior pelvis and hips nor in the gluteal musculature. However, there is some increased intramuscular signal evident medial to the left hip lesser trochanter in the quadratus femoris muscle consistent with impingement syndrome at this level. The adjacent iliopsoas tendon appears unremarkable. There is no signal abnormality in the ipsilateral left piriformis muscle. No abnormal signal in the obturator internus. No asymmetric hamstring tendon findings. Chronic disc space narrowing noted at L5-S1 level. No obvious disc herniation at this level. IMPRESSION: 1. No abnormal marrow signal in the pelvis and hips. 2. There is signal abnormality evident in the left quadratus femoris muscle medial to the left hip, this interposed between the lesser trochanter and ischial tuberosity. This finding is usually related to an element of impingement syndrome at this level. Similar finding is not seen on the opposite-right side. 3. No abnormal signal evident in the other musculature, including the piriformis (as per request). 4. Other incidental findings as above. DATA REPOSITORY:
== END 2024-08-29 03:18 ==
LOC: DI 02:58
PROVIDERS: PCP Nurse Practitioner Adult Health; Visit Provider Nurse Practitioner Adult Health
DX: S76.312A Strain of muscle, fascia and tendon of the posterior muscle group at thigh level, left thigh, initial encounter (principal); G57.02 Lesion of sciatic nerve, left lower limb; X58.XXXA Exposure to other specified factors, initial encounter
CPT/HCPCS: 72195

== ENCOUNTER 2024-11-21 03:24 | Outpatient (CLI) | payer OTHER, SELFPAY ==
--- NOTE | 2024-11-21 09:12 | DI.MAMMO_ITS ---
Exam(s) MAMMO SCREENING EXAM: MAMMO SCREENING CLINICAL HISTORY: screening,z12.39. TECHNIQUE: Bilateral full field digital CC and MLO mammographic images were obtained with 3D tomosynthesis and utilizing computer aided detection (CAD). COMPARISON: Prior mammograms were reviewed. FINDINGS: There has been no significant change in the appearance and distribution of the fibroglandular tissue. There are no new spiculated masses nor malignant appearing microcalcification groups. There is no significant architectural distortion nor skin thickening-retraction. IMPRESSION: No radiographic evidence of malignancy. BI-RADS Category 1 - Negative Breast Density - Category B - There are scattered areas of fibroglandular density. Breast density Category C or D implies that the patient has dense breast tissue. Dense breast tissue can make it harder to find cancer on a mammogram. Dense breast tissue is also associated with an increased risk of breast cancer. This information about the result of the mammogram report was provided to the patient to raise their awareness. Use this report when you speak with the patient about their risks for breast cancer, which includes their family history. At that time, you may recommend additional screening tests (Ultrasound or MRI) as these tests may add significant information. A negative radiographic report should not delay biopsy if a dominant or clinically suspicious mass is present. Up to ten percent of cancers are not identified on mammography. A negative report may reinforce clinical impression. Adenosis and dense breasts may obscure an underlying neoplasm. False positive reports average 6 to 10%. Patient will receive a letter notifying them of these results.
== END 2024-11-21 03:44 ==
LOC: DI 03:24
PROVIDERS: PCP Nurse Practitioner Adult Health; Visit Provider Nurse Practitioner Adult Health
DX: Z12.31 Encounter for screening mammogram for malignant neoplasm of breast (principal)
CPT/HCPCS: 77063; 77067

== ENCOUNTER 2024-12-01 14:45 | Outpatient (CLI) | payer OTHER, SELFPAY ==
--- NOTE | 2024-12-01 06:00 | DI.RAD_ITS ---
Exam(s) XR PAIN CLINIC FLUORO JOINT IN EXAM: XR PAIN CLINIC FLUORO JOINT IN CLINICAL HISTORY: DX: Ischial Bursitis TECHNIQUE: 2D and realtime digital imaging was performed. CONTRAST MATERIAL: Refer to procedure report. COMPARISON: No exams were available for comparison FINDINGS: Fluoroscopy was provided for Dr. Lux during the performance of a left ischial bursal injection. Please refer to the procedure report for complete details. Ka,r=1.4 mGy IMPRESSION: RADIATION DOSE DELIVERED: 0.0 0.0 0
[2024-12-01 14:53] VITALS: BP 117/86; PULSE 67; RESP 18; TEMP 36.4; O2SAT 99
[2024-12-01 15:36] VITALS: PULSE 60; O2SAT 99
[2024-12-01 15:40] VITALS: PULSE 66; O2SAT 99
[2024-12-01] MEDS: Omnipaque 240 MG/ML 50 ML BTL IJ (15:50)
[2024-12-01] MEDS: methylPREDNISolone ACETATE 40 MG/ML VIAL IJ (15:50)
[2024-12-01] MEDS: Lidocaine 2% Pres-Free 5 ML VIAL IJ (15:50)
[2024-12-01] MEDS: Nerve Block Tray 1 EACH MC (15:51)
--- NOTE | 2024-12-04 20:21 | PDOC.PAIN_ITS ---
Date of service: 12/04/24 Time of Service: 14:00 Coding Additional Codes: Date of Service (61240) Date of service: 12/04/24
--- NOTE | 2024-12-04 20:21 | PDOC.PAIN ---
Date of service: 12/04/24 Time of Service: 14:00 Coding Additional Codes: Date of Service (26966) Date of service: 12/04/24
--- NOTE | 2024-12-05 07:21 | PDOC.PAIN ---
Date of service: 12/01/24 Time of Service: 15:30 Pain Managment Procedure Note Procedure Note Procedure Note: PROCEDURE NOTE LEFT INTRA-ARTICULAR SACROILIAC JOINT INJECTION Date of Service: December 01, 2024 Patient: Ibis Lamas Provider: Marino Lux DO, MPH COMMENTS: I previously evaluated the patient in the office and their symptoms in relation to the left ischial bursa pain have remained the same. 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 Ibis was interviewed and the medical record reviewed. There were no medical, pharmacologic, radiographic or other structural contraindications to attempting a fluoroscopically-guided, contrast-enhanced, intra-bursal ischial bursa injection. The risks, benefits, and potential side effects of this procedure were reviewed with the patient. Questions and concerns were addressed. After it was clear that Ibis was fully informed about the procedure, the printed consent form was signed by the patient and myself. Ibis was placed in the prone position on the fluoroscopy table and an automated blood pressure cuff, 3 lead EKG, and pulse oximeter were applied. The skin entry point for approaching the Left sacroiliac joint was identified under the most advantageous fluoroscopic view and marked. Following thorough Chlorhexadine preparation of the skin and draping with sterile surgical drapes, 2 mls of 1% lidocaine was infiltrated into the skin at the entry point and the surrounding subcutaneous tissues. Next, a 3.5 22G spinal needle was placed under fluoroscopic guidance into the Left ischial bursa. Intra-bursal placement was confirmed by a clear bursagram resulting from the injection of 0.25ml of Omnipaque-240. Next, 1 ml of Depo- Medrol 40 mg/ml was injected intra-articularly with an initial reproduction of a significant component of the usual pain. This was followed with 1 ml of 1% Lidocaine. The needle was then removed without difficulty. (49 ml of Omnipaque-240 was wasted). Ibis's vital signs were stable throughout the procedure and were as recorded in nursing records. Follow up plans and appointments were discussed with Ibis. Post procedure instructions were given as documented in nursing records. Having met discharge criteria, Ibis was [facility] from the [facility]. COMMENTS: Post-procedure pain: VAS= 0/10. If the patient receives at least 50% improvement in pain and/or function for at least 3 months, this procedure can be repeated if needed. I personally performed this entire procedure. MARINO LUX DO, MPH ABPMR-subspecialty board certification in Pain Medicine [facility] Coding Conscious Sedation used for procedure: No Additional Codes: Date of Service (00409) Date of service: 12/01/24 Diagnoses: Ischial bursitis
== END 2024-12-01 14:46 | disposition home or self-care (01) ==
LOC: PC 14:46
PROVIDERS: PCP Nurse Practitioner Adult Health; Visit Provider Preventive Medicine Occupational Medicine
DX: M70.72 Other bursitis of hip, left hip (principal)
CPT/HCPCS: 20610; 77002; J1010; Q9967